=== PATIENT | male | born 1980 | race Caucasian/White ===

== ENCOUNTER → 2019-10-30 | Outpatient (CLI) | payer OTHER ==
[~2019-10-30] MED LIST: IOHEXOL 300 MG/ML 75 ML VIAL. IV ONE
--- NOTE | 2019-10-30 12:55 | RAD ---
INDICATION: Pelvic pain COMPARISON: None. TECHNIQUE: Axial CT images obtained through the abdomen and pelvis with contrast. One or more of the following individualized dose reduction techniques were utilized for this examination: 1. Automated exposure control; 2. Adjustment of the mA and/or kV according to patient size; 3. Use of iterative reconstruction technique. FINDINGS: Abdominal aorta is not aneurysmal. Small fat-containing right inguinal hernia. No intrahepatic bile duct dilation. No peripancreatic fluid collection. Spleen unremarkable. Urinary bladder is partially distended. No right-sided hydronephrosis. Wall thickening of the sigmoid colon with adjacent edema to the fat. Colonic diverticulosis. Retrocecal appendix without adjacent inflammation. No dilated loops of bowel to suggest obstruction. Mild degenerative changes of the spine. IMPRESSION: * Wall thickening of the sigmoid colon with adjacent edema to the fat. Most likely cause would be diverticulitis given that a colonic mass would be less common in a patient of this age. Electronically signed by: Favio Mcleod MD (10/30/2019 12:52 PM) [id number]
== END | disposition home or self-care (01) ==
LOC: CT 11:50
PROVIDERS: ATTEND Physician Assistant Medical
DX: R10.2 Pelvic and perineal pain (principal)
CPT/HCPCS: 74177; Q9967

== ENCOUNTER → 2020-03-26 | Outpatient (CLI) | payer OTHER ==
[2020-03-26 11:22] LABS: BASO % 0 % (0-3); EOS # 0.1 x10^3/uL (0.0-0.7); EOS % 2 % (0-3); HEMATOCRIT 46.7 % (39.0-53.0); HEMOGLOBIN 15.9 g/dL (13.0-17.5); LYMPH # 1.8 x10^3/uL (1.0-4.8); LYMPH % 37 % (24-48); MEAN CORPUSCULAR HEMOGLOBIN 32 pg (25-35); MEAN CORPUSCULAR HGB CONC 34 g/dL (31-37); MEAN CORPUSCULAR VOLUME 93 fL (79-100); MONO # 0.5 x10^3/uL (0.0-1.1); MONO % 10 % (0-9); NEUT # 2.5 x10^3uL (1.8-7.7); NEUT % 51 % (31-73); PLATELET COUNT 204 x10^3/uL (140-400); RED BLOOD COUNT 5.05 x10^6/uL (4.30-5.70); RED CELL DISTRIBUTION WIDTH 12.6 % (11.5-14.5)
[2020-03-26 11:34] LABS: ALBUMIN 4.4 g/dL (3.4-5.0); ALBUMIN/GLOBULIN RATIO 1.2 (1.0-1.7); CALCIUM 9.6 mg/dL (8.5-10.1); CREATININE 1.1 mg/dL (0.7-1.3); GFR 74.1; POTASSIUM 4.1 mmol/L (3.5-5.1); TOTAL BILIRUBIN 0.9 mg/dL (0.2-1.0); TOTAL PROTEIN 8.2 g/dL (6.4-8.2)
[2020-03-26 16:35] LABS: THYROID STIM HORMONE (TSH) 0.952 uIU/mL (0.358-3.740)
== END | disposition home or self-care (01) ==
LOC: LAB 10:23
PROVIDERS: ATTEND Physician Assistant Medical
DX: Z00.00 Encounter for general adult medical examination without abnormal findings (principal); R53.83 Other fatigue; G47.33 Obstructive sleep apnea (adult) (pediatric); K57.90 Diverticulosis of intestine, part unspecified, without perforation or abscess without bleeding; R35.0 Frequency of micturition
CPT/HCPCS: 36415; 80053; 80061; 84153; 84443; 85025; 86592; 86703; 86803; G0103

== ENCOUNTER → 2020-09-07 | Outpatient (CLI) | payer OTHER | LOC: PMG 11:54 | PROVIDERS: ATTEND Physician Assistant Medical | DX: Z01.812 Encounter for preprocedural laboratory examination (principal); Z11.4 Encounter for screening for human immunodeficiency virus [HIV]; Z11.9 Encounter for screening for infectious and parasitic diseases, unspecified; Z11.59 Encounter for screening for other viral diseases | CPT/HCPCS: 86703; 86705; 87340 ==

== ENCOUNTER → 2020-12-14 | Outpatient (CLI) | payer OTHER ==
--- NOTE | 2020-12-14 09:58 | RAD ---
EXAM: 3 views of the left ankle DATE: 12/14/2020 9:40 AM INDICATION: Reason: ANKLE PAIN / Spl. Instructions: / History: COMPARISON: No Prior FINDINGS: Marked soft tissue swelling overlying lateral malleolus and anterior ankle. No obvious acute fracture or dislocation although a comminuted nondisplaced fractures are not excluded. Ankle mortise is congr uent. Talar dome is intact. Joint spaces are preserved without significant degenerative/proliferative change. No significant soft tissue swelling. IMPRESSION: Soft tissue swelling overlying the lateral malleolus and anterior ankle without definite acute fractu re or dislocation. If there is persistent clinical concern for fracture, follow-up radiographs in 10- 14 days is recommended. Electronically signed by: Jesus Manuel Gonzalez MD (12/14/2020 9:55 AM) NIDA
== END ==
LOC: RAD 09:31
PROVIDERS: ATTEND Physician Assistant Medical
DX: M25.572 Pain in left ankle and joints of left foot (principal)
CPT/HCPCS: 73610

== ENCOUNTER → 2021-05-24 | Outpatient (CLI) | payer OTHER ==
[2021-05-24 13:19] LABS: BASO % 0 % (0-3); EOS # 0.1 x10^3/uL (0.0-0.7); EOS % 1 % (0-3); HEMATOCRIT 42.7 % (39.0-53.0); HEMOGLOBIN 14.5 g/dL (13.0-17.5); LYMPH # 2.4 x10^3/uL (1.0-4.8); LYMPH % 20 % (24-48); MEAN CORPUSCULAR HEMOGLOBIN 31 pg (25-35); MEAN CORPUSCULAR HGB CONC 34 g/dL (31-37); MEAN CORPUSCULAR VOLUME 93 fL (79-100); MONO # 1.2 x10^3/uL (0.0-1.1); MONO % 10 % (0-9); NEUT % 69 % (31-73); PLATELET COUNT 205 x10^3/uL (140-400); RED BLOOD COUNT 4.61 x10^6/uL (4.30-5.70); RED CELL DISTRIBUTION WIDTH 12.4 % (11.5-14.5); WHITE BLOOD COUNT 11.7 x10^3/uL (4.0-11.0)
[2021-05-24 13:23] LABS: ALBUMIN 4.1 g/dL (3.4-5.0); ALBUMIN/GLOBULIN RATIO 1.1 (1.0-1.7); CREATININE 1.2 mg/dL (0.7-1.3); GFR 66.7; POTASSIUM 4.1 mmol/L (3.5-5.1)
[2021-05-24 14:37] LABS: SEDIMENTATION RATE 20 (0-15)
== END ==
LOC: LAB 12:17
PROVIDERS: ATTEND Physician Assistant Medical
DX: R10.13 Epigastric pain (principal)
CPT/HCPCS: 36415; 80053; 82150; 83690; 85025; 85651